=== PATIENT | male | born 2000 | race Caucasian/White ===

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

== ENCOUNTER 2021-02-26 09:33 | Emergency (ER) | payer OTHER, SELFPAY ==
--- OUTSIDE RECORDS SUMMARY | 2021-02-26 09:36 | XMS REPORT | Continuity of Care Document ---
:2000 Author Organization [facility] t Address [address] [place] [address] Care Team Providers Name Role Phone Unavailable Unavailable Unavailable Problems This patient has no known problems. Allergies, Adverse Reactions, Alerts This patient has no known allergies or adverse reactions. Medications This patient has no known medications. Procedures This patient has no known procedures. Encounters Start End Encounter Admission Attending Care Care Encounter Source Date/Time Date/Time Type Type Clinicians Facility Department ID 2020-11-18 2020-11-18 Outpatient [facility] [id number] [facility] 2020-09-16 2020-09-16 Outpatient [facility] [id number] [facility] 2020-09-16 2020-09-16 Outpatient [facility] [id number] [facility] 2020-07-01 2020-07-01 Outpatient [facility] [id number] [facility] 2020-06-17 2020-06-17 Outpatient [facility] [id number] [facility] Results This patient has no known results.
--- NOTE | 2021-02-26 12:28 | ER ---
Nurse's Notes [facility] Name: Royer Jones Age: 20 yrs Sex: Male : 2000 Arrival Date: 02/26/2021 Time: 09:44 Bed Waiting Private MD: Diagnosis: SARS-associated coronavirus as the cause of diseases classified elsewhere;Diarrhea, unspecified Presentation: 02/26 10:21 Chief complaint: Patient states: Nausea and H/A. Coronavirus screen: Client denies da3 travel out of the [place] in the last 14 days. Ebola Screen: No symptoms or risks identified at this time. Risk Assessment: Do you want to hurt yourself or someone else? Patient reports no desire to harm self or others. 10:21 Method Of Arrival: Ambulatory da3 10:21 Acuity: DORITA 5 da3 13:14 Initial Sepsis Screen: Does the patient meet any 2 criteria? No. Patient's initial kg sepsis screen is negative. Does the patient have a suspected source of infection? No. Patient's initial sepsis screen is negative. Onset of symptoms was February 24, 2021. Triage Assessment: 10:25 General: Appears in no apparent distress. comfortable. da3 13:12 General: Behavior is calm, cooperative, appropriate for age, quiet. Pain: Complains of kg pain in Generalized. GI: Reports lower abdominal pain. Historical: - Allergies: 13:14 No Known Allergies; kg - Home Meds: 13:14 Baclofen Oral [Active]; Klonopin Oral [Active]; kg - PMHx: 13:14 Tourette Syndrome; kg - PSHx: 13:14 None; kg - Immunization history:: Client reports having NOT received the Covid vaccine. - Family history:: not pertinent. - Social history:: Smoking status: Patient denies any tobacco usage or history of. - Hospitalizations: : No recent hospitalization is reported. Screenin:11 Abuse screen: Denies threats or abuse. Denies injuries from another. Nutritional kg screening: No deficits noted. Tuberculosis screening: No symptoms or risk factors identified. Fall Risk None identified. Assessment: 13:13 GI: Abdomen is flat. kg Vital Signs: 10:24 BP 120 / 77; Pulse 81; Resp 20; Temp 97.8; Pulse Ox 99% on R/A; da3 ED Course: 09:44 Patient arrived in ED. mr 10:23 Triage completed. da3 10:30 Berto Moss MD is Attending Physician. rn 10:41 Strep Sent. rn 13:11 No provider procedures requiring assistance completed. Patient did not have IV access kg during this emergency room visit. 13:11 Patient has correct armband on for positive identification. kg 13:12 Arm band placed on right wrist. kg 13:15 Cee Pascual, RN is Primary Nurse. kg Administered Medications: No medications were administered Outcome: 12:27 Discharge ordered by MD. rn 13:11 Discharged to home ambulatory. kg 13:11 Condition: good 13:11 Discharge instructions given to patient, family, Instructed on discharge instructions, follow up and referral plans. Demonstrated understanding of instructions, follow-up care. 13:15 Patient left the ED. kg Signatures: Julia Rivero mr Berto Moss MD MD rn Graham, Kristen, MICHELLE RN kg Jorje Arzate RN RN da3 Corrections: (The following items were deleted from the chart) 11:32 10:41 CORONAVIRUS+MR.LAB.BRZ drawn and sent. rn EDMS
--- NOTE | 2021-02-26 12:28 | EDPHYS ---
Physician Documentation [facility] Name: Royer Jones Age: 20 yrs Sex: Male : 2000 Arrival Date: 02/26/2021 Time: 09:44 Bed Waiting Private MD: ED Physician Berto Moss HPI: 02/26 12:23 This 20 yrs old Male presents to ER via Ambulatory with complaints of Nausea, rn Abdominal Pain. 12:23 The patient presents to the emergency department with nausea, diarrhea. Onset: The rn symptoms/episode began/occurred 3 day(s) ago. Possible causes: unknown. The symptoms are aggravated by nothing. The symptoms are alleviated by nothing. Associated signs and symptoms: Pertinent positives: diarrhea, nausea, sore throat. Severity of symptoms: At their worst the symptoms were mild in the emergency department the symptoms are unchanged. The patient has not experienced similar symptoms in the past. The patient has not recently seen a physician. Patient reports 2 or 3 days of not feeling well, generalized fatigue, nausea and diarrhea. 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 Nonvaccinated. No fever. No shortness of breath. Historical: - Allergies: 13:14 No Known Allergies; kg - Home Meds: 13:14 Baclofen Oral [Active]; Klonopin Oral [Active]; kg - PMHx: 13:14 Tourette Syndrome; kg - PSHx: 13:14 None; kg - Immunization history:: Client reports having NOT received the Covid vaccine. - Family history:: not pertinent. - Social history:: Smoking status: Patient denies any tobacco usage or history of. - Hospitalizations: : No recent hospitalization is reported. ROS: 12:23 Constitutional: Negative for fever, chills, and weight loss, Eyes: Negative for injury, rn pain, redness, and discharge, ENT: Positive for sore throat Neck: Negative for injury, pain, and swelling, Cardiovascular: Negative for chest pain, palpitations, and edema, Respiratory: Negative for shortness of breath or cough, wheezing, and pleuritic chest pain, Abdomen/GI: Negative for vomiting, and constipation, Back: Negative for injury and pain, : Negative for injury, bleeding, discharge, and swelling, MS/Extremity: Negative for injury and deformity, Skin: Negative for injury, rash, and discoloration, Neuro: Negative for numbness, tingling, and seizure. Exam: 12:23 Constitutional: This is a well developed, well nourished patient who is awake, alert, rn and in no acute distress. Head/Face: Normocephalic, atraumatic. Eyes: Pupils equal round and reactive to light, extra-ocular motions intact. Lids and lashes normal. Conjunctiva and sclera are non-icteric and not injected. Cornea within normal limits. Periorbital areas with no swelling, redness, or edema. ENT: No stridor. Neck: Trachea midline. Supple, full range of motion without nuchal rigidity. No Meningismus. Cardiovascular: Regular rate and rhythm. No pulse deficits. Respiratory: Speaking full sentences, unlabored. No increased work of breathing, no retractions or nasal flaring. Abdomen/GI: Soft, non-tender Skin: Warm, dry MS/ Extremity: Pulses equal, no cyanosis. Neuro: Awake and alert, GCS 15 Vital Signs: 10:24 BP 120 / 77; Pulse 81; Resp 20; Temp 97.8; Pulse Ox 99% on R/A; da3 MDM: 12:23 Differential diagnosis: viral gastroenteritis, gastroenteritis, Viral syndrome, Covid. rn Data reviewed: vital signs, nurses notes, lab test result(s), and as a result, I will discharge patient. Data interpreted: Pulse oximetry: on room air is 99 %. Interpretation: normal. Counseling: I had a detailed discussion with the patient and/or guardian regarding: the historical points, exam findings, and any diagnostic results supporting the discharge/admit diagnosis, the need for outpatient follow up, to return to the emergency department if symptoms worsen or persist or if there are any questions or concerns that arise at home. Special discussion: I discussed with the patient/guardian in detail that at this point there is no indication for admission to the hospital. It is understood, however, that if the symptoms persist or worsen the patient needs to return immediately for re-evaluation. 12:27 Patient medically screened. rn 02/26 10:35 Order name: Strep; Complete Time: 12:28 rn 02/26 12:00 Order name: Throat Culture EDMS 02/26 12:23 Order name: SARS-COV-2 RT PCR; Complete Time: 12:28 EDMS Administered Medications: No medications were administered Disposition Summary: 02/26/21 12:27 Discharge Ordered Location: Home rn Problem: new rn Symptoms: are unchanged rn Condition: Stable rn Diagnosis - SARS-associated coronavirus as the cause of diseases classified elsewhere rn - Diarrhea, unspecified rn Followup: rn - With: Private Physician - When: As needed - Reason: Recheck today's complaints, Re-evaluation by your physician Discharge Instructions: - Discharge Summary Sheet rn - COVID-19 rn - 10 Things You Can Do to Manage Your COVID-19 Symptoms at Home - [facility] rn - Viral Illness, Adult rn - Prevent the Spread of COVID-19 if You Are Sick - [facility] rn Forms: - Medication Reconciliation Form rn - Thank You Letter rn - Antibiotic corporate strategy intern - Prescription Opioid Use rn - Work release form kg Signatures: Dispatcher [employer] EDMS Berto Moss MD MD rn Graham, Kristen, RN RN kg Jorje Arzate RN RN da3 Corrections: (The following items were deleted from the chart) 11:32 10:35 CORONAVIRUS+MR.LAB.BRZ ordered. EDMO EDMS
[2021-02-26 13:21] VITALS: BP 120/77; TEMP 97.8; O2SAT 99
== END 2021-02-26 13:15 | disposition home or self-care (01) ==
LOC: ER 09:33
DX: U07.1 COVID-19 (principal)
CPT/HCPCS: 87070; 87081; 99283; U0003